=== PATIENT | male | born 1975 | race Caucasian/White ===

== ENCOUNTER → 2021-02-13 10:26 | Outpatient (CLI) | payer BC, SELFPAY ==
[2021-02-13 11:28] LABS: Alanine Aminotransferase 18 U/L (12-78); Albumin Level 4.7 g/dl (3.5-5.0); Albumin/Globulin Ratio 1.7 (1.1-1.8); Alkaline Phosphatase 46 U/L (38-126); Anion Gap 13.7 mEq/L (5-15); Aspartate Amino Transferase 30 U/L (17-59); Blood Urea Nitrogen 14 mg/dl (9-20); Calcium 9.5 mg/dl (8.4-10.2); Carbon Dioxide 32 mmol/L (22.0-30.0); Chloride 101 mmol/L (98-107); Estimated Glomerular Filt Rate 92 ml/min (>60); GFR (African American) 111 ML/MIN (>60); Globulin 2.7 g/dL (1.3-3.2); Glucose 100 mg/dl (74-100); Potassium 4.7 mmoL/L (3.5-5.1); Sodium 142 mmol/L (136-145); Total Protein,Serum 7.4 g/dl (6.3-8.2)
[2021-02-13 11:59] LABS: Prostate Specific Ag Screen 1.6 ng/ml (0.0-4.0)
== END ==
PROVIDERS: Visit Provider Nurse Practitioner Family
DX: R39.11 Hesitancy of micturition (principal); Z12.5 Encounter for screening for malignant neoplasm of prostate
CPT/HCPCS: 36415; 80053; G0103

== ENCOUNTER 2021-06-15 12:23 | Emergency (ER) | payer BC, SELFPAY ==
[2021-06-15 13:37] VITALS: BP 113/77; PULSE 65; RESP 18; TEMP 36.9; O2SAT 99; BMI 19.7
--- NOTE | 2021-06-15 13:41 | HMH.EDUTC ---
[facility] [place] Disposition Clinical Impression: Viral syndrome Disposition: Home, Self-Care Condition on Discharge: Good Instructions: DI for Viral Syndrome Additional Instructions: Drink plenty of fluids. Rest for a couple of days. Take tylenol or ibuprofen for pain or fever. Follow up with your regular doctor. GO TO THE ER FOR ANY WORSENING SYMPTOMS Referrals: Liban Sellers MD [Primary Care Provider] - Forms: Work/School Release Time of Disposition: 13:51 Medical Decision Making - Medical Records Medical records reviewed: No: I reviewed the patient's medical records. - Сергей Inquiry Pt receiving controlled substance: No Vital Signs: 06/15/21 13:37 06/15/21 14:08 Temperature 98.4 F 98.4 F Temperature Source Temporal Artery Scan Pulse Rate 65 Pulse Rate [Right Brachial] 65 Respiratory Rate 18 18 Blood Pressure 113/77 Blood Pressure [Right Arm] 113/77 Blood Pressure Mean [Right Arm] 89 Blood Pressure Source [Right Arm] Automatic Cuff Blood Pressure Position [Right Arm] Sitting 02 Sat by Pulse Oximetry 99 Oxygen Delivery Method Room Air - Lab Data Lab results reviewed: Yes: I reviewed the patient's lab results. Lab Results 06/15/21 13:45: Strep Scn Rapid Clinic Negative 06/15/21 13:51: Chlamy pneumoniae PCR Not detected, Adenovirus (PCR) Not detected, B. pertussis DNA (PCR) Not detected, Coronavirus OC43 (PCR) Not detected, Coronavirus HKU1 (PCR) Not detected, Coronavirus 229E (PCR) Not detected, SARS-CoV-2 (PCR) Not detected, Coronavirus NL63 (PCR) Not detected, Human Metapneumovir PCR Not detected, Influenza A (H1) PCR Not detected, Influ A (H1N1/09) PCR Not detected, Influenza A (H3) PCR Not detected, Influenza Type A (PCR) Not detected, Influenza Type B (PCR) Not detected, M. pneumoniae (PCR) Not detected, Parainfluenza 1 (PCR) Not detected, Parainfluenza 2 (PCR) Not detected, Parainfluenza 3 (PCR) Not detected, Parainfluenza 4 (PCR) Not detected, RSV (PCR) Not detected, Entero/Rhino (PCR) Not detected [facility] [place] HPI - General Stated complaint: sore throat, cough, runny nose Time Seen by Provider: 06/15/21 13:41 - History of Present Illness Provider Complaint: He c/o sinus congestion and feeling bad since yesterday. - Related Data Home Medications Medication Instructions Recorded Confirmed buspirone 5 mg tablet 5 mg PO BID 03/01/21 06/15/21 paroxetine HCl 20 mg tablet 20 mg PO DAILY 03/01/21 06/15/21 Oxybutynin Chloride 5 mg PO BID 06/15/21 06/15/21 Allergies Allergy/AdvReac Type Severity Reaction Status Date / Time penicillin G [PENICILLIN G] Allergy Intermediate I-RASH Verified 06/15/21 13:36 [facility] History - Hepatitis A Screen Attestation statement:: This patient has been screened for Hepatitis A risk factors. I have reviewed the patient's past medical history: Yes Comment: pneumonia, cat scratch fever Other Surgeries: Yes: No Previous Surgery Amputation: No Fractures: No Comment: swollen glands removed from under arm, chest tubes in lungs for double pneumonia, - Social History Smoking Status: Former smoker Tobacco Type: cigarettes Alcohol Intake: current Alcohol Intake Frequency:: a few times a month Occupational Status: other, employed Housing: house Household Members: family Family Hx:: Cancer, Hyperlipidemia, Diabetes, Hypertension, Heart Attack, Thyroid Disorder ROS Obtained: Yes All systems reviewed & no additional complaints - Constitutional Constitutional: Reports fever(s), Reports poor appetite, Reports malaise - Eyes Eyes: Denies eye discharge - ENT Ears, Nose, Mouth, and Throat: Reports as per HPI, Denies dizziness, Denies otalgia, Reports sore throat - Cardiovascular Cardiovascular: Denies chest pain - Respiratory Respiratory: Denies chest congestion, Reports cough, Denies dyspnea, Denies stridor, Denies wheezing Physical Exam - General General appearance: alert, in no apparent distress - Head Head exam: atrau
[2021-06-15 14:01] LABS: Adenovirus,PCR Not Detected (NotDetected); Coronavirus 229E Not Detected (NotDetected); Coronavirus NL63 Not Detected (NotDetected); Coronavirus OC43 Not Detected (NotDetected); Coronovirus HKU1,PCR Not Detected (NotDetected); Human Metapneumovirus Not Detected (NotDetected); Influenza A, PCR Not Detected (NotDetected); Rhinovirus/Enterovirus Not Detected (NotDetected)
[2021-06-15 14:02] LABS: Bordetella Pertussis Not Detected (NotDetected); Chlamydophila Pneumoniae, PCR Not Detected (NotDetected); Coronavirus 19, PCR Not Detected (NotDetected); Influenza AH1, 2009 Not Detected (NotDetected); Influenza AH1, PCR Not Detected (NotDetected); Influenza AH3,PCR Not Detected (NotDetected); Influenza B, PCR Not Detected (NotDetected); Mycoplasma Pneumoniae, PCR Not Detected (NotDetected); Parainfluenza 1, PCR Not Detected (NotDetected); Parainfluenza 2, PCR Not Detected (NotDetected); Parainfluenza 3, PCR Not Detected (NotDetected); Parainfluenza 4, PCR Not Detected (NotDetected); Respiratory Syncytial Virus Not Detected (NotDetected)
[2021-06-15 14:04] LABS: UTC Strep Screen (Rapid) Negative (Negative)
[2021-06-15 14:08] VITALS: BP 113/77; PULSE 65; RESP 18; TEMP 36.9
== END 2021-06-15 14:08 | disposition home or self-care (01) ==
PROVIDERS: Emergency Provider Nurse Practitioner Family; PCP Family Medicine
DX: B34.9 Viral infection, unspecified (principal); Z20.822 Contact with and (suspected) exposure to COVID-19; Z87.891 Personal history of nicotine dependence
CPT/HCPCS: 87581; 87632; 87798; 87880; 99202; C9803; G0463; U0003; U0005

== ENCOUNTER 2022-04-08 14:30 | Emergency (ER) | payer BC, SELFPAY ==
--- NOTE | 2022-04-08 16:30 | EXP.UTC ---
Discharge Plan Disposition Patient Disposition: Home, Self-Care Condition: Good Prescriptions Prescriptions: New azithromycin [Zithromax] 250 mg tablet 250 mg PO UD DOSE PK Qty: 6 0RF Rx Instructions: Take two (2) tablets today, then one (1) tablet days #2 thru #5 methylprednisolone 4 mg Tablets,Dose Pack 4 mg PO DIRECTED Qty: 21 0RF No Action paroxetine HCl 20 mg tablet 20 mg PO DAILY buspirone 5 mg tablet 5 mg PO BID oxybutynin chloride 5 mg tablet 5 mg PO BID Qty: 60 5RF oxybutynin chloride 5 MG tablet 5 mg PO BID Referrals Referrals: Radhika Pickard APRN [Primary Care Provider] - Enter time for follow up Activity Restrictions/Add. Instructions Additional Instructions/Restrictions: Drink plenty of fluids. Take tylenol or ibuprofen for pain or fever. Take the medications as directed. Follow up with your regular doctor. GO TO THE ER FOR ANY WORSENING SYMPTOMS Throw your tooth brush away and get a new one. Clinical Impressions Clinical Impression: Strep throat Instructions Patient Instructions: Strep Throat, DI for Strep Throat Discharge ED Provider: Sourav Jeter [facility] General Stated complaint: Sore throat, fatigue, SOA Mode of Arrival: Ambulatory Source of Information: Patient and Parent(s) Limitations: No Limitations Time Seen by Provider: 04/08/22 16:55 Description of Symptoms (Recalled from Triage Doc. by RN): patient comes in with complaints of sore throat and runny nose. at home covid test was negative. symptoms began monday. HEENT Symptoms (Recalled from RN notes): Yes Resp Symptoms (Recalled from RN notes): Yes Skin Symptoms (Recalled from RN notes): No MS Symptoms (Recalled from RN notes): No Functional Status (Recalled from RN notes): n/a History of Present Illness Provider Complaint: He c/o sore throat for the past 2 days. Related Data Home Medications Medication Instructions Recorded Confirmed buspirone 5 mg tablet 5 mg PO BID mood 03/01/21 06/15/21 paroxetine HCl 20 mg tablet 20 mg PO DAILY Depression 03/01/21 06/15/21 oxybutynin chloride 5 mg tablet 5 mg PO BID bladder 06/15/21 06/15/21 Previous Rx's Medication Instructions Recorded oxybutynin chloride 5 mg tablet 5 mg PO BID #60 tabs 01/13/22 azithromycin 250 mg tablet 250 mg PO UD DOSE PK #6 tabs 04/08/22 (Zithromax) methylprednisolone 4 mg tablets in 4 mg PO DIRECTED #21 tabs 04/08/22 a dose pack Allergies Allergy/AdvReac Type Severity Reaction Status Date / Time penicillin G [PENICILLIN G] Allergy Intermediate I-RASH Verified 04/08/22 16:53 Worker's Comp Is this a Worker's Comp case?: No PFSH PFSH Social History Smoking Status: Former smoker alcohol intake: current current occupational status: employed household members: family housing: house caffeine: Yes ROS Obtained: Yes All systems reviewed & no additional complaints except as documented Constitutional Constitutional: Reports chills and Reports fever(s) Eyes Eyes: Denies eye discharge ENT Ears, Nose, Mouth, and Throat: Reports as per HPI Cardiovascular Cardiovascular: Denies chest pain Respiratory Respiratory: Denies chest congestion and Reports cough Gastrointestinal Gastrointestingal: Reports nausea; Denies abdominal pain, constipation, cramping, diarrhea or vomiting Musculoskeletal Musculoskeletal: Denies arthralgias Integumentary/Breasts Skin/Breast: Denies rash Neurologic Neurologic: Denies paresthesias Physical Exam General General appearance: alert and in no apparent distress Head Head exam: atraumatic and normocephalic Eye Eye exam: Present normal appearance, PERRL and EOMI ENT ENT exam: Present normal exam, normal oropharynx, mucous membranes moist and TM's normal bilaterally Neck Neck exam: Present normal inspection, full ROM and trachea midline; Absent tenderness, meningismus or lymphadenop
[2022-04-08 16:49] VITALS: BP 113/71; PULSE 60; RESP 16; TEMP 36.6; O2SAT 99; BMI 21.1
[2022-04-08 16:54] LABS: UTC Strep Screen (Rapid) Positive (Negative)
[2022-04-08 17:29] VITALS: BP 113/71; PULSE 60; RESP 16; TEMP 36.6
== END 2022-04-08 17:46 | disposition home or self-care (01) ==
PROVIDERS: Emergency Provider Nurse Practitioner Family; PCP Nurse Practitioner Family
DX: J02.0 Streptococcal pharyngitis (principal); B95.0 Streptococcus, group A, as the cause of diseases classified elsewhere; R06.02 Shortness of breath; R53.82 Chronic fatigue, unspecified; Z20.822 Contact with and (suspected) exposure to COVID-19; Z79.52 Long term (current) use of systemic steroids; Z88.0 Allergy status to penicillin
CPT/HCPCS: 87880; 99213; C9803; G0463; U0003; U0005

== ENCOUNTER 2022-04-20 16:53 | Emergency (ER) | payer BC, SELFPAY ==
--- NOTE | 2022-04-20 18:24 | XR_ITS ---
PROCEDURE INFORMATION: Exam: XR Left Tibia and Fibula Exam date and time: 04/20/2022 6:29 PM Age: 46 years old Clinical indication: Pain; Prior surgery; Surgery date: 6+ months; Surgery type: Left lower leg surgery, hardware placed. ; Additional info: [place] pain TECHNIQUE: Imaging protocol: Radiologic exam of the Left tibia and fibula. Views: 2 views. COMPARISON: No relevant prior studies available. FINDINGS: Bones/joints: Tibial intramedullary fixation cherri with proximal and distal bicortical fixation screws demonstrating no gross hardware complication. Distal left fibular lateral fixation plate with syndesmotic screw demonstrating no gross hardware complication. Chronic largely healed fracture of the distal tibial diaphysis with areas of bridging ossification union. Persistent fracture lines are seen in the comminuted distal fibular fracture, possibly incomplete ossific union at this point, with anatomic alignment. Focal cortical thickening at the posterior margin of the proximal fibular metadiaphysis may represent a site of remote prior healed fracture. Proximal and distal tibiofibular alignment is normal. Knee and ankle joint alignment is normal. No gross joint effusions. Visualized hindfoot is unremarkable. Soft tissues: No soft tissue abnormalities. IMPRESSION: No acute findings.
--- NOTE | 2022-04-20 18:26 | HMH.EDGENADL ---
Discharge Plan Disposition Patient Disposition: Home, Self-Care Condition: Good Prescriptions Prescriptions: No Action paroxetine HCl 20 mg tablet 20 mg PO DAILY buspirone 5 mg tablet 5 mg PO BID oxybutynin chloride 5 mg tablet 5 mg PO BID Qty: 60 5RF oxybutynin chloride 5 MG tablet 5 mg PO BID azithromycin [Zithromax] 250 mg tablet 250 mg PO UD DOSE PK Qty: 6 0RF Rx Instructions: Take two (2) tablets today, then one (1) tablet days #2 thru #5 methylprednisolone 4 mg Tablets,Dose Pack 4 mg PO DIRECTED Qty: 21 0RF Referrals Follow up/Referrals: Radihka Pickard APRN [Primary Care Provider] - See instructions Activity Restrictions/Add. Instructions Additional Instructions/Restrictions: You have been evaluated for left lower leg pain, likely due to routine postoperative healing. Since he presented to the emergency department after hours, you will need to return tomorrow for ultrasound to rule out DVT. Please call scheduling in the morning. Continue to take Tylenol or Motrin for aches and pains. Follow-up with your primary care doctor and primary orthopedic surgeon. Return to the emergency department for any new or worsening symptoms, pain, redness, skin changes or other concerns. Clinical Impressions Clinical Impression: Post-op pain, Left leg pain Instructions Patient Instructions: DI for Leg Pain Discharge ED Provider: Brigette Layne Adult HPI General Chief complaint: Upper Respiratory Infection Stated complaint: Eye pressure, sore throat, L LEG PAIN Time Seen by Provider: 04/20/22 18:27 Mode of Arrival: Ambulatory Source of Information: Patient Limitations: No Limitations History of Present Illness HPI narrative: 46-year-old male presenting to the emergency department with sore throat, itchy eyes, left leg pain. Symptoms started about 2 weeks ago. He and his children were diagnosed with strep pharyngitis, completed antibiotics. Feels like his sore throat never entirely got better. Feels scratchy. Hurts to swallow. No fevers, chills, shortness of breath. He also has left leg pain. The pain is on the moody and radiates toward the ankle. He has history of ORIF for a tib-fib fracture. This pain has been present for about 1 month. Feels hot, burning. No skin changes, redness or wounds. No history of DVT or PE. When he called his surgeon's office, they recommended he be evaluated for possible DVT. Related Data Home Medications Medication Instructions Recorded Confirmed buspirone 5 mg tablet 5 mg PO BID mood 03/01/21 06/15/21 paroxetine HCl 20 mg tablet 20 mg PO DAILY Depression 03/01/21 06/15/21 oxybutynin chloride 5 mg tablet 5 mg PO BID bladder 06/15/21 06/15/21 Previous Rx's Medication Instructions Recorded oxybutynin chloride 5 mg tablet 5 mg PO BID #60 tabs 01/13/22 azithromycin 250 mg tablet 250 mg PO UD DOSE PK #6 tabs 04/08/22 (Zithromax) methylprednisolone 4 mg tablets in 4 mg PO DIRECTED #21 tabs 04/08/22 a dose pack Allergies Allergy/AdvReac Type Severity Reaction Status Date / Time penicillin G [PENICILLIN G] Allergy Intermediate I-RASH Verified 04/08/22 16:53 PFSH PFS Social History (Updated 04/08/22 @ 21:53 by Sourav Jeter APRN) Smoking Status: Current every day smoker tobacco type: cigarettes alcohol intake: current current occupational status: employed Travel in the last 8 weeks: None household members: family housing: house caffeine: Yes ROS Obtained: Yes All systems reviewed & no additional complaints except as documented Constitutional Constitutional: Denies anorexia, Denies fever(s) and Denies headache(s) Eyes Eyes: Reports dry eyes, Reports irritation, Reports itchy eyes, Denies eye pain and Denies photophobia ENT Ears, Nose, Mouth, and Throat: Reports facial pain, Denies headache(s), Reports post nasal drip, Reports sinus pain, Reports sore throat and Denies throat swelling Cardiovas
[2022-04-20 18:29] VITALS: BP 127/80; PULSE 66; RESP 18; TEMP 36.9; O2SAT 100; BMI 19.5
--- NOTE | 2022-04-20 18:36 | PC.NURSE ---
PT TO XR
[2022-04-20 18:42] LABS: Coronavirus 19, PCR Not Detected (NotDetected); Influenza A, PCR Not Detected (NotDetected); Influenza B, PCR Not Detected (NotDetected)
[2022-04-20 19:30] VITALS: BP 114/75; PULSE 66; O2SAT 98
[2022-04-20 20:00] VITALS: BP 111/77; PULSE 64; O2SAT 99
[2022-04-20 20:34] VITALS: BP 110/76; PULSE 78; RESP 18; TEMP 36.6; O2SAT 99
== END 2022-04-20 20:36 | disposition home or self-care (01) ==
PROVIDERS: Emergency Provider Emergency Medicine; PCP Nurse Practitioner Family
DX: M79.605 Pain in left leg (principal); J02.9 Acute pharyngitis, unspecified; J06.9 Acute upper respiratory infection, unspecified; H04.129 Dry eye syndrome of unspecified lacrimal gland; F17.210 Nicotine dependence, cigarettes, uncomplicated; Z98.890 Other specified postprocedural states
CPT/HCPCS: 73590; 99283; C9803; U0003; U0005

== ENCOUNTER → 2022-04-21 09:14 | Outpatient (CLI) | payer BC, SELFPAY ==
--- NOTE | 2022-04-21 09:23 | CA_ITS ---
FINAL REPORT TECHNIQUE: Color Doppler, duplex Doppler and compression sonography of the left lower extremity deep venous systems was performed. CLINICAL HISTORY: .ORIF 01/02 LEFT LOWER LEG PAIN FINDINGS: There is no evidence of deep venous thrombosis from the level of the groin to the calf. The veins are patent and compressible. IMPRESSION: No evidence of deep venous thrombosis left lower extremity. Reviewed, Interpreted and Dictated by Miguel Angel Sanchez III, MD Transcribed by Cristian Mcpherson Authenticated and [facility]
== END ==
PROVIDERS: PCP Nurse Practitioner Family; Visit Provider Emergency Medicine
DX: M79.662 Pain in left lower leg (principal)
CPT/HCPCS: 93971

== ENCOUNTER 2022-05-29 16:39 | Emergency (ER) | payer BC, SELFPAY ==
[2022-05-29 16:50] VITALS: BP 125/64; PULSE 81; RESP 18; TEMP 37.2; O2SAT 98; BMI 19.8
--- NOTE | 2022-05-29 17:10 | EXP.UTC ---
Discharge Plan Disposition Patient Disposition: Home, Self-Care Condition: Good Prescriptions Prescriptions: No Action paroxetine HCl 20 mg tablet 20 mg PO DAILY buspirone 5 mg tablet 5 mg PO BID oxybutynin chloride 5 mg tablet 5 mg PO BID Qty: 60 5RF oxybutynin chloride 5 MG tablet 5 mg PO BID azithromycin [Zithromax] 250 mg tablet 250 mg PO UD DOSE PK Qty: 6 0RF Rx Instructions: Take two (2) tablets today, then one (1) tablet days #2 thru #5 methylprednisolone 4 mg Tablets,Dose Pack 4 mg PO DIRECTED Qty: 21 0RF Referrals Follow up/Referrals: Radhika Pickard APRN [Primary Care Provider] - See instructions Activity Restrictions/Add. Instructions Additional Instructions/Restrictions: *Monitor Temp, Over the counter Motrin or Tylenol as directed/as needed Tylenol every 4 hours and Motrin every 6 hours (as long as your family doctor has told you that you can take it) for fever or pain. and straight to ER if unable to lower temp less than 101.0 after medication given *Warm salt water gargles may help to soothe the throat *Throat Lozenges? *Warm fluids like tea with honey may help to soothe the throat? *Sleep elevated? *Humidifier/Vaporizer Your throat swab was sent for culture. Those results are typically sent to your primary care. Be sure to follow up in 2-3 days with your family doctor/primary care physician if no improvement so they can review those result and treat if necessary. If you don?t have a primary care doctor, I recommend you get one but in the mean time, you will have to return to a walk in clinic Follow up IMMEDIATELY for new or worsening symptoms or no Noticeable improvement over the next 48-72 hours. 911 for difficulty breathing or swallowing You were tested for today for COVID19 your test result should be back in the next 24-48 hours, you may check your results on the [facility] [employer] [facility] Clinical Impressions Clinical Impression: Viral syndrome Instructions Patient Instructions: Sore Throat, DI for Nasal Congestion Discharge ED Provider: [place]i [place] [facility] [place] General Stated complaint: poss sinus inf, runny nose Mode of Arrival: Ambulatory Source of Information: Patient Limitations: No Limitations Time Seen by Provider: 05/29/22 17:10 Description of Symptoms (Recalled from Triage Doc. by RN): PATIENT C/O HEADACHE, RUNNY NOSE, AND IRRITATED THROAT SINCE THIS MORNING HEENT Symptoms (Recalled from RN notes): Yes Resp Symptoms (Recalled from RN notes): No Skin Symptoms (Recalled from RN notes): No MS Symptoms (Recalled from RN notes): No Functional Status (Recalled from RN notes): WNL History of Present Illness Provider Complaint: Patient states that he has been having headache, sinus congestion and pressure and his throat feels irritated and scratchy since this morning States that this evening he wasnt feeling any better so he came in to get checked out Related Data Home Medications Medication Instructions Recorded Confirmed buspirone 5 mg tablet 5 mg PO BID mood 03/01/21 06/15/21 paroxetine HCl 20 mg tablet 20 mg PO DAILY Depression 03/01/21 06/15/21 oxybutynin chloride 5 mg tablet 5 mg PO BID bladder 06/15/21 06/15/21 Previous Rx's Medication Instructions Recorded oxybutynin chloride 5 mg tablet 5 mg PO BID #60 tabs 01/13/22 azithromycin 250 mg tablet 250 mg PO UD DOSE PK #6 tabs 04/08/22 (Zithromax) methylprednisolone 4 mg tablets in 4 mg PO DIRECTED #21 tabs 04/08/22 a dose pack Allergies Allergy/AdvReac Type Severity Reaction Status Date / Time penicillin G [PENICILLIN G] Allergy Intermediate I-RASH Verified 04/08/22 16:53 Worker's Comp Is this a Worker's Comp case?: No PFSH PFSH Medical History (Updated 05/29/22 @ 17:37 by Meri Griffith APRN) Anxiety Depression Pneumothorax Social History (Updated 05/29/22 @ 17:03 by Paulina Ennis RN) Smoking Status: Current every
[2022-05-29 17:20] LABS: Adenovirus,PCR Not Detected (NotDetected); Bordetella Pertussis Not Detected (NotDetected); Chlamydophila Pneumoniae, PCR Not Detected (NotDetected); Coronavirus 19, PCR Not Detected (NotDetected); Coronavirus 229E Not Detected (NotDetected); Coronavirus NL63 Not Detected (NotDetected); Coronavirus OC43 Not Detected (NotDetected); Coronovirus HKU1,PCR Not Detected (NotDetected); Human Metapneumovirus Not Detected (NotDetected); Influenza A, PCR Not Detected (NotDetected); Influenza AH1, 2009 Not Detected (NotDetected); Influenza AH1, PCR Not Detected (NotDetected); Influenza AH3,PCR Not Detected (NotDetected); Influenza B, PCR Not Detected (NotDetected); Mycoplasma Pneumoniae, PCR Not Detected (NotDetected); Parainfluenza 1, PCR Not Detected (NotDetected); Parainfluenza 2, PCR Not Detected (NotDetected); Parainfluenza 3, PCR Not Detected (NotDetected); Parainfluenza 4, PCR Not Detected (NotDetected); Respiratory Syncytial Virus Not Detected (NotDetected); Rhinovirus/Enterovirus Not Detected (NotDetected)
[2022-05-29 17:29] LABS: UTC Strep Screen (Rapid) Negative (Negative)
[2022-05-29 17:31] VITALS: BP 125/64; PULSE 81; RESP 18; TEMP 37.2; O2SAT 98
== END 2022-05-29 17:51 | disposition home or self-care (01) ==
PROVIDERS: Emergency Provider Nurse Practitioner; PCP Nurse Practitioner Family
DX: J02.9 Acute pharyngitis, unspecified (principal); B34.9 Viral infection, unspecified; R51.9 Headache, unspecified; F32.A Depression, unspecified; F41.9 Anxiety disorder, unspecified; F17.210 Nicotine dependence, cigarettes, uncomplicated; Z79.52 Long term (current) use of systemic steroids; Z79.899 Other long term (current) drug therapy; Z88.0 Allergy status to penicillin
CPT/HCPCS: 87581; 87632; 87798; 87880; 99213; C9803; G0463; U0003; U0005

== ENCOUNTER 2022-06-02 12:12 | Emergency (ER) | payer BC, SELFPAY ==
--- NOTE | 2022-06-02 12:44 | XR_ITS ---
FINAL REPORT CLINICAL HISTORY: CONGESTION FINDINGS: Two views of the chest were obtained. The heart size and pulmonary vascularity are within normal limits. The mediastinum is normal. No acute pulmonary abnormality is identified. There is no pneumothorax. The bony thorax is intact. IMPRESSION: No active cardiopulmonary disease. Reviewed, Interpreted and Dictated by Miguel Angel Sanchez III, MD Transcribed by Nancy Murrieta Authenticated and [facility]
[2022-06-02 12:51] VITALS: BP 139/94; PULSE 69; RESP 16; TEMP 36.7; O2SAT 98; BMI 19.5
[2022-06-02 12:52] LABS: UTC Strep Screen (Rapid) Negative (Negative)
[2022-06-02 12:53] LABS: UTC Influenza A Antigen Negative (Negative); UTC Influenza B Antigen Negative (Negative)
--- NOTE | 2022-06-02 13:10 | EXP.UTC ---
Discharge Plan Disposition Patient Disposition: Home, Self-Care Condition: Good Prescriptions Prescriptions: New azithromycin [Zithromax Z-Tucker] 250 mg tablet See Rx Instructions .ROUTE .COMPLEX 5 Days Qty: 6 0RF Rx Instructions: For 250 mg dose pack: take 500 mg today (day 1), then 250 mg for 4 days (days 2-5) methylprednisolone [Medrol (Tucker)] 4 mg tablets,dose pack See Rx Instructions .Route .COMPLEX 6 Days Qty: 21 0RF Rx Instructions: taper pack; No Action paroxetine HCl 20 mg tablet 20 mg PO DAILY buspirone 5 mg tablet 5 mg PO BID oxybutynin chloride 5 MG tablet 5 mg PO BID azithromycin [Zithromax] 250 mg tablet 250 mg PO UD DOSE PK Qty: 6 0RF Rx Instructions: Take two (2) tablets today, then one (1) tablet days #2 thru #5 methylprednisolone 4 mg Tablets,Dose Pack 4 mg PO DIRECTED Qty: 21 0RF oxybutynin chloride 5 mg tablet 5 mg PO BID Referrals Follow up/Referrals: Radhika Pickard APRN [Primary Care Provider] - See instructions Activity Restrictions/Add. Instructions Additional Instructions/Restrictions: *Monitor Temp, Over the counter Motrin or Tylenol as directed/as needed Tylenol every 4 hours and Motrin every 6 hours (as long as your family doctor has told you that you can take it) for fever or pain. and straight to ER if unable to lower temp less than 101.0 after medication given *Warm salt water gargles may help to soothe the throat *Throat Lozenges? *Warm fluids like tea with honey may help to soothe the throat? *Sleep elevated *Humidifier/Vaporizer Your throat swab was sent for culture. Those results are typically sent to your primary care. Be sure to follow up in 2-3 days with your family doctor/primary care physician if no improvement so they can review those result and treat if necessary. If you don?t have a primary care doctor, I recommend you get one but in the mean time, you will have to return to a walk in clinic Follow up IMMEDIATELY for new or worsening symptoms or no Noticeable improvement over the next 48-72 hours. 911 for difficulty breathing or swallowing Clinical Impressions Clinical Impression: Upper respiratory infection Qualifiers: URI type: unspecified URI Qualified Code(s): J06.9 - Acute upper respiratory infection, unspecified Stand Alone Forms Stand Alone Forms: Work/School Release Instructions Patient Instructions: Sinusitis, DI for Sinusitis Discharge ED Provider: Meri Griffith [facility] [place] General Stated complaint: body aches,congestion,blood in nose drainage,left Mode of Arrival: Ambulatory Source of Information: Patient Limitations: Physical Limitations Time Seen by Provider: 06/02/22 13:10 Description of Symptoms (Recalled from Triage Doc. by RN): pt comes in with c/o body aches, congestion, runny nose with yellow drainage, left lung pain, small amount of bloody drainage from nose, soreness in left eyeball, weakness, migraine, headache. HEENT Symptoms (Recalled from RN notes): Yes Resp Symptoms (Recalled from RN notes): Yes Skin Symptoms (Recalled from RN notes): No MS Symptoms (Recalled from RN notes): No Functional Status (Recalled from RN notes): n/a History of Present Illness Provider Complaint: Patient states that he was seen about a week ago and dx with viral syndrome States that he has continued to get worse since then States that he is having sinus pain and pressure with blood tinged mucous from his nose and pain and pressure behind his eyes like he gets with sinus infection States that the drainage in the back of his throat is making his throat feel scratchy and sinus headache States that last night he had some pain in his left lung and wanted to get a chest xray to make sure that it isnt trying to move into his lung or his lung collapsed again but he had SOA then and not having that now and states that not having headache this morning Related Data Home Medications
[2022-06-02 14:04] VITALS: BP 139/94; PULSE 69; RESP 16; TEMP 36.7
== END 2022-06-02 14:05 | disposition home or self-care (01) ==
PROVIDERS: Emergency Provider Nurse Practitioner; PCP Nurse Practitioner Family
DX: J06.9 Acute upper respiratory infection, unspecified (principal)
CPT/HCPCS: 71046; 87804; 87880; 99212; G0463

== ENCOUNTER 2022-06-06 11:00 | Outpatient (RCR) | payer BC, SELFPAY | END 2022-06-06 11:05 | disposition home or self-care (01) | LOC: PT 11:00 | PROVIDERS: PCP Nurse Practitioner Family; Visit Provider Neuromusculoskeletal Medicine, Sports Medicine | DX: M79.605 Pain in left leg (principal); M25.572 Pain in left ankle and joints of left foot | CPT/HCPCS: 97010; 97110; 97112; 97163; 97164; 97530 ==

== ENCOUNTER → 2023-01-14 10:05 | Outpatient (CLI) | payer BC, SELFPAY ==
[2023-01-13 17:53] LABS: Basophils % 0.4 % (0.1-2.0); Eosinophils # 0.2 K/mm3 (0.0-0.4); Eosinophils % 2.9 % (0.1-12.0); Hematocrit 46.5 % (42.0-52.0); Hemoglobin 15.4 g/dL (14.1-18.0); Lymphocytes # 1.5 K/mm3 (0.7-4.5); Mean Corpuscular HGB Conc 33.1 g/dL (31.8-35.4); Mean Corpuscular Hemoglobin 30.8 pg (27.0-31.2); Mean Corpuscular Volume 93.1 fl (80-94); Mean Platelet Volume 10.4 fl (7.4-10.4); Monocytes # 0.5 K/mm3 (0.1-1.0); Monocytes % 9.7 % (1.7-9.3); Neutrophils # 2.9 K/mm3 (1.8-7.8); Platelet Count 207 K/mm3 (142-424); Red Blood Count 4.99 M/mm3 (4.60-6.20); Red Cell Distribution Width 12.6 % (11.5-17.5); White Blood Count 5.1 K/mm3 (4.8-10.8)
[2023-01-13 18:29] LABS: Alanine Aminotransferase 24 U/L (12-78); Albumin Level 4.6 g/dl (3.5-5.0); Albumin/Globulin Ratio 1.6 (1.1-1.8); Alkaline Phosphatase 58 U/L (38-126); Anion Gap 13.3 mEq/L (5-15); Aspartate Amino Transferase 33 U/L (17-59); Bilirubin,Total 0.7 mg/dl (0.2-1.3); Blood Urea Nitrogen 15 mg/dl (9-20); Calcium 9.6 mg/dl (8.4-10.2); Carbon Dioxide 31 mmol/L (22.0-30.0); Chloride 101 mmol/L (98-107); Cholesterol 205 mg/dl (140-200); Estimated Glomerular Filt Rate 91 ml/min (>60); GFR (African American) 110 ML/MIN (>60); Globulin 2.8 g/dL (1.3-3.2); Glucose 98 mg/dl (74-100); HDL Cholesterol 68 mg/dl (40-60); Potassium 4.3 mmoL/L (3.5-5.1); Sodium 141 mmol/L (136-145); Total Protein,Serum 7.4 g/dl (6.3-8.2); Triglycerides 48 mg/dl (30-150); VLDL Cholesterol 10 mg/dL (0-40)
[2023-01-13 18:41] LABS: Direct LDL Cholesterol 114.29 mg/dL (100-129)
[2023-01-13 18:48] LABS: 25-OH Vitamin D, Total 21.9 ng/mL (30-100)
[2023-01-13 19:01] LABS: Thyroid Stimulating Hormone 0.54 uIU/mL (0.465-4.68)
== END ==
LOC: LAB.DROPOF 10:06
PROVIDERS: PCP Nurse Practitioner Family; Visit Provider Nurse Practitioner Family
DX: R53.83 Other fatigue (principal); E55.9 Vitamin D deficiency, unspecified; Z79.899 Other long term (current) drug therapy
CPT/HCPCS: 80053; 80061; 82306; 84443; 85025

== ENCOUNTER → 2023-05-22 15:20 | Outpatient (CLI) | payer BC, SELFPAY ==
[2023-05-22 19:53] LABS: Basophils % 0.3 % (0.1-2.0); Eosinophils # 0.1 K/mm3 (0.0-0.4); Eosinophils % 1.4 % (0.1-12.0); Hematocrit 45.5 % (42.0-52.0); Lymphocytes # 1.4 K/mm3 (0.7-4.5); Lymphocytes % 25.5 % (10-50); Mean Corpuscular Hemoglobin 30.6 pg (27.0-31.2); Mean Corpuscular Volume 92.8 fl (80-94); Mean Platelet Volume 10.8 fl (7.4-10.4); Monocytes # 0.4 K/mm3 (0.1-1.0); Monocytes % 8.2 % (1.7-9.3); Neutrophils # 3.5 K/mm3 (1.8-7.8); Neutrophils % 64.7 % (37.0-80.0); Platelet Count 223 K/mm3 (142-424); Red Cell Distribution Width 12.6 % (11.5-17.5); White Blood Count 5.3 K/mm3 (4.8-10.8)
[2023-05-22 20:20] LABS: 25-OH Vitamin D, Total 77.5 ng/mL (30-100)
[2023-05-22 20:23] LABS: Alanine Aminotransferase 18 U/L (12-78); Albumin Level 4.7 g/dl (3.5-5.0); Albumin/Globulin Ratio 1.6 (1.1-1.8); Alkaline Phosphatase 47 U/L (38-126); Aspartate Amino Transferase 27 U/L (17-59); Bilirubin,Total 0.8 mg/dl (0.2-1.3); Blood Urea Nitrogen 13 mg/dl (9-20); Calcium 9.7 mg/dl (8.4-10.2); Carbon Dioxide 31 mmol/L (22.0-30.0); Chloride 104 mmol/L (98-107); Estimated Glomerular Filt Rate 91 ml/min (>60); GFR (African American) 110 ML/MIN (>60); Glucose 87 mg/dl (74-100); Sodium 142 mmol/L (136-145); Total Protein,Serum 7.7 g/dl (6.3-8.2)
[2023-05-22 20:54] LABS: Thyroid Stimulating Hormone 0.76 uIU/mL (0.465-4.68)
[2023-05-22 21:13] LABS: Vitamin B12 727 pg/mL (239-931)
== END ==
LOC: LAB.DROPOF 05-23 09:49
PROVIDERS: PCP Internal Medicine; Visit Provider Internal Medicine
DX: I73.00 Raynaud's syndrome without gangrene (principal); Z79.899 Other long term (current) drug therapy
CPT/HCPCS: 80053; 82306; 82607; 84443; 85025

== ENCOUNTER 2023-05-31 18:37 | Emergency (ER) | payer BC, SELFPAY ==
[2023-05-31 18:38] VITALS: BP 112/83; PULSE 78; RESP 21; TEMP 37.6; O2SAT 100; BMI 20.8
[2023-05-31 19:12] LABS: UTC Strep Screen (Rapid) Negative (Negative)
--- NOTE | 2023-05-31 19:29 | EXP.UTC ---
Discharge Plan Disposition Patient Disposition: Home, Self-Care Condition: Good Prescriptions Prescriptions: New benzonatate 100 mg capsule 100 mg PO TID PRN (Reason: cough) Qty: 30 0RF ondansetron 4 mg tablet,disintegrating 4 mg PO Q8H PRN (Reason: nausea and vomiting) Qty: 10 0RF No Action buspirone 5 mg tablet 5 mg PO TID Qty: 270 1RF Referrals Follow up/Referrals: Nicole Kelley PA [Primary Care Provider] - See instructions Activity Restrictions/Add. Instructions Additional Instructions/Restrictions: *Monitor Temp, Over the counter Motrin or Tylenol as directed/as needed Tylenol every 4 hours and Motrin every 6 hours (as long as your family doctor has told you that you can take it) for fever or pain. and straight to ER if unable to lower temp less than 101.0 after medication given *Warm salt water gargles may help to soothe the throat *Throat Lozenges? *Warm fluids like tea with honey may help to soothe the throat? *Sleep elevated *Humidifier/Vaporizer Your throat swab was sent for culture. Those results are typically sent to your primary care. Be sure to follow up in 2-3 days with your family doctor/primary care physician if no improvement so they can review those result and treat if necessary. If you don?t have a primary care doctor, I recommend you get one but in the mean time, you will have to return to a walk in clinic Follow up IMMEDIATELY for new or worsening symptoms or no Noticeable improvement over the next 48-72 hours. 911 for difficulty breathing or swallowing Clinical Impressions Clinical Impression: Viral upper respiratory tract infection with cough Stand Alone Forms Stand Alone Forms: Work/School Release Instructions Patient Instructions: Cough, DI for Nausea -- Adult Discharge ED Provider: Meri Griffith [facility] General Stated complaint: upset stomach, weakness, congestion, sore throat Mode of Arrival: Ambulatory Source of Information: Patient Limitations: No Limitations Time Seen by Provider: 05/31/23 19:29 Description of Symptoms (Recalled from Triage Doc. by RN): stomach cramps, sore throat, and fever HEENT Symptoms (Recalled from RN notes): Yes Resp Symptoms (Recalled from RN notes): No Skin Symptoms (Recalled from RN notes): No MS Symptoms (Recalled from RN notes): No Functional Status (Recalled from RN notes): n/a History of Present Illness Provider Complaint: Patient states that he has been having sore throat, fever, and upset stomach States that daughter is having similar symptoms not sure if they may have strep throat or a virus or something Related Data Previous Rx's Medication Instructions Recorded buspirone 5 mg tablet 5 mg PO TID #270 tabs 06/09/22 benzonatate 100 mg capsule 100 mg PO TID PRN cough #30 caps 05/31/23 ondansetron 4 mg disintegrating 4 mg PO Q8H PRN nausea and 05/31/23 tablet vomiting #10 tabs Allergies Allergy/AdvReac Type Severity Reaction Status Date / Time penicillin G [PENICILLIN G] Allergy Intermediate I-RASH Verified 05/31/23 19:15 Worker's Comp Is this a Worker's Comp case?: No [facility] Disclaimer: The information contained in this section may have been updated after the patient was seen, as this information can be updated by other users. Medical History Anxiety Depression Fracture of left tibia and fibula Pneumothorax Surgical History Fracture of left tibia and fibula Social History Smoking Status: Never smoker alcohol intake: current current occupational status: employed Travel in the last 8 weeks: None household members: family housing: house caffeine: Yes ROS Obtained: Yes All systems reviewed & no additional complaints except as documented and Yes Systems reviewed as appropria
[2023-05-31 19:44] VITALS: BP 112/83; PULSE 78; RESP 21; TEMP 37.6; O2SAT 100
== END 2023-05-31 19:44 | disposition home or self-care (01) ==
PROVIDERS: Emergency Provider Nurse Practitioner; PCP Physician Assistant
DX: R05.9 Cough, unspecified (principal); J06.9 Acute upper respiratory infection, unspecified; R11.0 Nausea; B34.9 Viral infection, unspecified; F41.9 Anxiety disorder, unspecified; F32.A Depression, unspecified
CPT/HCPCS: 87880; 99212; 99214; G0463

== ENCOUNTER 2023-06-07 15:34 | Emergency (ER) | payer BC, SELFPAY ==
[2023-06-07 15:40] VITALS: BP 127/78; PULSE 78; RESP 18; TEMP 36.6; O2SAT 98; BMI 19.5
--- NOTE | 2023-06-07 15:50 | EXP.UTC ---
Discharge Plan Disposition Patient Disposition: Home, Self-Care Condition: Good Prescriptions Prescriptions: New methylprednisolone 4 mg Tablets,Dose Pack 4 mg PO DIRECTED Qty: 21 0RF cefdinir 300 mg capsule 300 mg PO BID Qty: 20 0RF guaifenesin [Mucinex] 600 mg tablet extended release 12hr 600 - 1,200 mg PO BIDP PRN (Reason: Congestion) Qty: 30 0RF isgqjihcvuhsanu-ppmtfvlvm-EX [Bromfed DM] 2-30-10 mg/5 mL Syrup 5 ml PO Q6H PRN (Reason: Cough) Qty: 240 0RF No Action buspirone 5 mg tablet 5 mg PO TID Qty: 270 1RF benzonatate 100 mg capsule 100 mg PO TID PRN (Reason: cough) Qty: 30 0RF ondansetron 4 mg tablet,disintegrating 4 mg PO Q8H PRN (Reason: nausea and vomiting) Qty: 10 0RF Referrals Follow up/Referrals: Nicole Kelley PA [Primary Care Provider] - See instructions Activity Restrictions/Add. Instructions Additional Instructions/Restrictions: Drink plenty of fluids. Take tylenol or ibuprofen for pain or fever. Take the medications as directed. Follow up with your regular doctor. GO TO THE ER FOR ANY WORSENING SYMPTOMS Clinical Impressions Clinical Impression: Pharyngitis, Sinusitis, Bronchitis Stand Alone Forms Stand Alone Forms: Work/School Release Instructions Patient Instructions: Sinusitis, DI for Sinusitis Discharge ED Provider: Sourav Jeter [facility] General Stated complaint: congestion, weakness, sore throat Time Seen by Provider: 06/07/23 15:50 History of Present Illness Provider Complaint: He states that for the past 2 days he has had sore throat, chills, body aches and low grade fever. Related Data Previous Rx's Medication Instructions Recorded buspirone 5 mg tablet 5 mg PO TID #270 tabs 06/09/22 benzonatate 100 mg capsule 100 mg PO TID PRN cough #30 caps 05/31/23 ondansetron 4 mg disintegrating 4 mg PO Q8H PRN nausea and 05/31/23 tablet vomiting #10 tabs clufjqkhzmvdgft-dwyenuncupbcnzu-MR 5 ml PO Q6H PRN Cough #240 mL 06/07/23 2 mg-30 mg-10 mg/5 mL oral syrup (Bromfed DM) cefdinir 300 mg capsule 300 mg PO BID #20 caps 06/07/23 guaifenesin 600 mg tablet, 600 - 1,200 mg PO BIDP PRN 06/07/23 extended release 12 hr (Mucinex) Congestion #30 tabs methylprednisolone 4 mg tablets in 4 mg PO DIRECTED #21 tabs 06/07/23 a dose pack Allergies Allergy/AdvReac Type Severity Reaction Status Date / Time penicillin G [PENICILLIN G] Allergy Intermediate I-RASH Verified 05/31/23 19:15 [facility] Disclaimer: The information contained in this section may have been updated after the patient was seen, as this information can be updated by other users. Medical History Anxiety Depression Fracture of left tibia and fibula Pneumothorax Surgical History Fracture of left tibia and fibula Social History Smoking Status: Never smoker alcohol intake: current current occupational status: employed Travel in the last 8 weeks: None household members: family housing: house caffeine: Yes ROS Obtained: Yes All systems reviewed & no additional complaints except as documented Constitutional Constitutional: Reports chills and Reports fever(s) Eyes Eyes: Denies eye discharge ENT Ears, Nose, Mouth, and Throat: Reports as per HPI Cardiovascular Cardiovascular: Denies chest pain Respiratory Respiratory: Denies chest congestion and Reports cough Gastrointestinal Gastrointestingal: Reports nausea; Denies abdominal pain, constipation, cramping, diarrhea or vomiting Musculoskeletal Musculoskeletal: Denies arthralgias Integumentary/Breasts Skin/Breast: Denies rash Neurologic Neurologic: Denies paresthesias Physical Exam General General appearance: alert and in no apparent distress Head Head exam: atraumatic, normocephalic and normal inspection Eye Ey
[2023-06-07 16:02] LABS: UTC Strep Screen (Rapid) Negative (Negative)
[2023-06-07 16:38] VITALS: BP 127/78; PULSE 78; RESP 18; TEMP 36.6; O2SAT 98
== END 2023-06-07 16:38 | disposition home or self-care (01) ==
PROVIDERS: Emergency Provider Nurse Practitioner Family; PCP Physician Assistant
DX: J20.9 Acute bronchitis, unspecified (principal); J01.90 Acute sinusitis, unspecified; J02.9 Acute pharyngitis, unspecified
CPT/HCPCS: 87880; 99212; 99214; G0463

== ENCOUNTER 2024-01-04 14:46 | Outpatient (CLI) | payer BC, SELFPAY ==
--- NOTE | 2024-01-04 14:53 | XR_ITS ---
FINAL REPORT CLINICAL HISTORY: lt knee pain FINDINGS: LEFT KNEE 3 views of the left knee were obtained. There is no acute fracture or dislocation. An intramedullary cherri is seen. Visualized joint spaces are normally aligned. The soft tissue swelling anterior to the patella. IMPRESSION: No acute bony abnormality. Reviewed, Interpreted and Dictated by Matt Florentino MD Transcribed by Nita Kam Authenticated and [facility]
== END 2024-01-04 23:59 | disposition home or self-care (01) ==
LOC: RAD 14:48
PROVIDERS: PCP Physician Assistant; Visit Provider Orthopaedic Surgery
DX: M25.562 Pain in left knee (principal)
CPT/HCPCS: 73562

== ENCOUNTER 2024-02-26 10:30 | Outpatient (CLI) | payer BC, SELFPAY ==
[2024-02-26 18:08] LABS: Coronavirus 19, PCR Not Detected (NotDetected); Influenza A, PCR Not Detected (NotDetected); Influenza B, PCR Not Detected (NotDetected)
== END 2024-02-26 23:59 | disposition home or self-care (01) ==
LOC: LAB.DROPOF 02-27 08:36
PROVIDERS: Visit Provider Family Medicine
DX: R51.9 Headache, unspecified (principal); H92.09 Otalgia, unspecified ear
CPT/HCPCS: 87070; 87077; 87186; 87205; 87636

== ENCOUNTER 2024-04-26 13:31 | Emergency (ER) | payer BC, SELFPAY ==
[2024-04-26 14:04] VITALS: BP 128/87; PULSE 56; RESP 20; TEMP 36.9; O2SAT 97; BMI 19.5
--- NOTE | 2024-04-26 14:13 | ED_ITS ---
Discharge Plan Disposition Patient Disposition: Home, Self-Care Condition: Good Prescriptions Prescriptions: No Action buspirone 5 mg tablet See Rx Instructions .ROUTE .COMPLEX Qty: 270 4RF Dose Instruction: TAKE 1 TABLET BY MOUTH THREE TIMES DAILY Rx Instructions: TAKE 1 TABLET BY MOUTH THREE TIMES DAILY Referrals Follow up/Referrals: Nicole Kelley PA [Primary Care Provider] - See instructions Activity Restrictions/Add. Instructions Additional Instructions/Restrictions: Follow up with your Family Doctor if no improvement and discuss MRI if symptoms persist Over the counter Cold and Cough medication Return if needed Straight to ER if any life threatening symptoms Clinical Impressions Clinical Impression: URI (upper respiratory infection) Instructions Patient Instructions: DI for Nasal Congestion, Guaifenesin Print Language Print Language: Malaysian Discharge ED Provider: Meri Griffith [facility] HPI General Stated complaint: upper respiratory congesstion, sore throat Mode of Arrival: Ambulatory Source of Information: Patient Time Seen by Provider: 04/26/24 14:13 Description of Symptoms (Recalled from Triage Doc. by RN): UPPER CHEST SORENESS, FATIGUE, LEFT KNEE NUMB HEENT Symptoms (Recalled from RN notes): No Resp Symptoms (Recalled from RN notes): Yes (UPPER CHEST SORENESS) Skin Symptoms (Recalled from RN notes): No MS Symptoms (Recalled from RN notes): Yes (NUMBNESS) Functional Status (Recalled from RN notes): WNL History of Present Illness Provider Complaint: Patient states that he thinks he may have URI states he has been having drainage in his throat and into his chest, no coughing anything up States he has been having pain and numbness in his legs for almost a year and seeing Orthopedics for it and already had Xrays wasnt sure if he could do an MRI or not requesting COVID test Related Data Previous Rx's ?Medication ?Instructions ?Recorded buspirone 5 mg tablet See Rx Instructions .Route 02/26/24 .COMPLEX #270 tabs Allergies Allergy/AdvReac Type Severity Reaction Status Date / Time penicillin G [PENICILLIN G] Allergy Intermediate I-RASH Verified 02/26/24 10:18 Worker's Comp Is this a Worker's Comp case?: No [facility] Disclaimer: The information contained in this section may have been updated after the patient was seen, as this information can be updated by other users. Medical History (Updated 04/26/24 @ 15:39 by Meri Griffith APRN) Pharyngitis Sinusitis Bronchitis Fracture of left tibia and fibula Pneumothorax Depression Anxiety Surgical History Fracture of left tibia and fibula Social History Smoking Status: Never smoker alcohol intake: current alcohol intake frequency: a few times a month current occupational status: employed Travel in the last 8 weeks: None household members: family housing: house caffeine: Yes ROS Obtained: Yes All systems reviewed & no additional complaints except as documented and Yes Systems reviewed as appropriate & no additional complaints except as documented Constitutional Constitutional: Reports system reviewed and no additional complaints, except as documented and Reports as per HPI ENT Ears, Nose, Mouth, and Throat: Reports system reviewed and no additional complaints, except as documented, Reports as per HPI, Reports nasal congestion, Reports nasal discharge and Reports other (drainage in throat) Cardiovascular Cardiovascular: Reports system reviewed and no additional complaints, except as documented, Reports as per HPI, Denies chest pain, Denies chest pain at rest, Denies edema, Denies irregular heart rhythm, Denies leg edema and Denies lightheadedness Respiratory Respiratory: Reports system reviewed and no additional complaints, except as documented, Reports as per HPI, Reports chest congestion and Reports cough Gastrointestinal Gastrointestingal: Reports system reviewed and no additional complaints, except as documented and as per HPI Genitourinary Male Genitourinary: Reports system reviewed and no additional complaints, except as documented Musculoskeletal Musculoskeletal: Reports system reviewed and no additional complaints, except as documented Comments: pain, numbnes on and off for a year currently seeing Orthopedics awaiting appointment with Spine Physical Exam General General appearance: alert and in no apparent distress ENT ENT exam: Present mucous membranes moist Expanded ENT Exam Nose exam: Absent sinus tenderness Throat exam: Present normal inspection Neck Neck exam: Present normal inspection, full ROM and trachea midline; Absent tenderness Chest Chest inspection: Present normal inspection, symmetric chest wall rise and tenderness Respiratory Respiratory exam: Present normal lung sounds bilaterally; Absent respiratory distress or wheezes Cardiovascular Cardiovascular exam: Present regular rate Abdominal Exam Abdominal exam: Present soft and normal bowel sounds; Absent distention or tenderness Extremities Exam Extremities exam: Present normal inspection and full ROM; Absent tenderness, normal capillary refill, edema, joint swelling, calf tenderness, clubbing or cyanosis Neurological Exam Neurological exam: Present alert, oriented X3 and normal gait Medical Decision Making Сергей Inquiry Pt receiving controlled substance: No Сергей was queried for this patient: No Vital Signs: 04/26/24 14:04 Temperature 98.5 F Temperature Source Oral Pulse Rate [Left Brachial] 56 L Respiratory Rate 20 Blood Pressure [Left Arm] 128/87 Blood Pressure Mean [Left Arm] 100 02 Sat by Pulse Oximetry 97 Medical Decision Narrative: Explained to patient that MRI would have to be ordered by PCP or Orthopedics unable to order them from the [facility]
[2024-04-26 16:06] VITALS: BP 128/87; PULSE 56; RESP 20; TEMP 36.9
== END 2024-04-26 16:07 | disposition home or self-care (01) ==
PROVIDERS: Emergency Provider Nurse Practitioner; PCP Physician Assistant
DX: J06.9 Acute upper respiratory infection, unspecified (principal); R05.9 Cough, unspecified
CPT/HCPCS: 87635; 99212; 99213; G0463

== ENCOUNTER 2024-05-02 13:46 | Emergency (ER) | payer BC, SELFPAY ==
[2024-05-02 13:53] VITALS: BP 132/76; PULSE 96; RESP 16; TEMP 36.8; O2SAT 99; BMI 19.5
--- NOTE | 2024-05-02 14:18 | ED_ITS ---
<Statement entered by Bozena Whatley DO - 05/02/24 17:51> I was consulted by the BLOSSOM, and we discussed the complexity of the problems being addressed. I approved the treatment and management plan for this patient's care in the emergency department, thus performing a substantive portion of the medical decision making. Bozena Whatley DO Discharge Plan Disposition Patient Disposition: Home, Self-Care Condition: Good Prescriptions Prescriptions: New methocarbamol 750 mg tablet 750 mg PO Q6H PRN (Reason: muscle spasm) Qty: 20 0RF prednisone 50 mg tablet 50 mg PO DAILY 5 Days Qty: 5 0RF lidocaine 5 % adhesive patch,medicated 1 patch topical DAILY Qty: 30 0RF Rx Instructions: leave on most painful area for up to 12 hrs No Action buspirone 5 mg tablet See Rx Instructions .ROUTE .COMPLEX Qty: 270 4RF Dose Instruction: TAKE 1 TABLET BY MOUTH THREE TIMES DAILY Rx Instructions: TAKE 1 TABLET BY MOUTH THREE TIMES DAILY Referrals Follow up/Referrals: Nicole Kelley PA [Primary Care Provider] - See instructions Activity Restrictions/Add. Instructions Additional Instructions/Restrictions: Please schedule your follow-up with Dr. Lemus. I have sent medications to your pharmacy. Follow-up with your PCP for no improvement. Return to ER for any worsening signs or symptoms as needed. Clinical Impressions Clinical Impression: Left sciatic nerve pain Instructions Patient Instructions: DI for Sciatica Print Language Print Language: Portuguese Discharge ED Provider: Bozena Whatley General Adult HPI General Chief complaint: PAIN Stated complaint: pain in left leg Time Seen by Provider: 05/02/24 14:18 Mode of Arrival: Ambulatory Source of Information: Patient Limitations: No Limitations Description of Symptoms (Recalled from ER Triage Doc. by RN): Pt. presents to the ED with complaints of left leg pain. He states he has had pain in his left leg since August but it has progressively gotten worse over the past 9 months. He states it starts in his toes with tingling, numbness and goes up into his mid-thigh. He states over the last few weeks the pain has gotten worse and worse. He states that he had an accident in 2021 that broke his tibular/fibula and he had to have surgery. History of Present Illness HPI narrative: Patient presents for evaluation of left lower extremity pain and numbness. Patient gives a months long history of left lower extremity numbness and tingling. Patient has a previous history of ORIF of that extremity several years ago. He has been evaluated by Dr. Lemus of orthopedics here at [facility] for his knee pain and has been referred to Dr. Triston Lemus of orthospine but has yet to have seen him. He has only tried chiropractic and Tylenol for conservative measures. Patient states that initially it was only his toes that used to have numbness and tingling pain but now it is progressed to well above the knee. He states it starts when he stands up in the morning and does not go away at all or improve until he lies down at night. 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 He denies any loss of motor function. He denies bowel or bladder incontinence or saddle anesthesia. He denies any trauma associated. Patient does report a history of scoliosis. Related Data Previous Rx's ?Medication ?Instructions ?Recorded buspirone 5 mg tablet See Rx Instructions .Route 02/26/24 .COMPLEX #270 tabs lidocaine 5 % topical patch 1 patch topical DAILY #30 ea 05/02/24 methocarbamol 750 mg tablet 750 mg PO Q6H PRN muscle spasm #20 05/02/24 tabs prednisone 50 mg tablet 50 mg PO DAILY 5 days #5 tabs 05/02/24 Allergies Allergy/AdvReac Type Severity Reaction Status Date / Time penicillin G [PENICILLIN G] Allergy Intermediate I-RASH Verified 02/26/24 10:18 [facility] Disclaimer: The information contained in this section may have been updated after the patient was seen, as this information can be updated by other users. Medical History (Updated 05/02/24 @ 16:21 by OXANA Roberts) Pharyngitis Sinusitis Bronchitis Fracture of left tibia and fibula Pneumothorax Depression Anxiety Surgical History Fracture of left tibia and fibula Social History Smoking Status: Never smoker alcohol intake: current alcohol intake frequency: a few times a month current occupational status: employed Travel in the last 8 weeks: None household members: family housing: house caffeine: Yes ROS Obtained: Yes Systems reviewed as appropriate & no additional complaints except as documented Physical Exam General General appearance: alert and in no apparent distress Respiratory Respiratory exam: Present normal lung sounds bilaterally Cardiovascular Cardiovascular exam: Present regular rate Neurological Exam Neurological exam: Present alert and oriented X3 Medical Decision Making Medical Records Medical records reviewed: Yes I reviewed the patient's medical records. Screening: Per USPSTF and CDC recommendations, given the prevalence of disease in our region, it is our hospital?s policy to screen for HIV and viral Hepatitis for all patients aged 18 and over and those with ongoing risk factors. Сергей Inquiry Pt receiving controlled substance: No Vital Signs: 05/02/24 13:53 05/02/24 16:22 Temperature 98.2 F Temperature Source Oral Pulse Rate 71 Pulse Rate [Right Brachial] 96 H Respiratory Rate 16 Blood Pressure 102/71 L Blood Pressure [Right Arm] 132/76 Blood Pressure Mean [Right Arm] 94 Blood Pressure Source [Right Arm] Automatic Cuff Blood Pressure Position [Right Arm] Sitting 02 Sat by Pulse Oximetry 99 98 Oxygen Delivery Method Room Air Room Air Lab Data Lab results reviewed: Yes I reviewed the patient's lab results. Orders (Tests/Meds): ED MEDICATIONS Generic Name Dose Route Start Last Admin Trade Name Freq PRN Reason Stop Dose Admin Dexamethasone Sodium Phosphate 8 mg 05/02/24 14:30 05/02/24 14:26 Dexamethasone 4mg/Ml 5ml Mdv IM 06/01/24 14:29 8 mg Q6H JOSE Administration Discontinued Medications Generic Name Dose Route Start Last Admin Trade Name Freq PRN Reason Stop Dose Admin Acetaminophen 1,000 mg 05/02/24 14:18 05/02/24 14:27 Acetaminophen 500mg Tab PO 05/02/24 14:19 1,000 mg ONCE ONE Administration Ketorolac Tromethamine 30 mg 05/02/24 14:18 05/02/24 14:26 Ketorolac 30mg/Ml Vial IM 05/02/24 14:19 30 mg ONCE ONE Administration Methocarbamol 500 mg 05/02/24 14:18 05/02/24 14:26 Methocarbamol 500mg Tablet PO 05/02/24 14:19 500 mg ONCE ONE Administration ORDERS Category Date Time Status CT lumbar spine wo con Stat Cat Scan 05/02/24 14:18 Completed Medical Decision Narrative: In summary patient is a 48-year-old male who presents to the emergency department for evaluation of left lower extremity paresthesia. Patient is hemodynamically stable upon arrival, afebrile. Physical exam is remarkable for intact motor and sensory of the left lower extremity and patient does not have an antalgic gait. He reports subjective numbness tingling pain from the knee down. He has no saddle anesthesia. He is not tender in the dorsal spine no bony deficits noted.. Differential diagnosis includes degenerative spine disease, sciatica, peripheral neuropathy, osteoarthritis etc. Initial workup will be conducted with CT of the lumbar spine without contrast.. Initial interventions include Decadron Robaxin Toradol acetaminophen. Initial workup reviewed by me and patient does have degenerative spine disease most pronounced at L5-S1 with neuroforaminal narrowing bilaterally however more pronounced on the left prior to radiology read. Upon repeat evaluation patient reported minimal improvement in his symptoms. Given this patient is appropriate for discharge with prescriptions for lidocaine patch, muscle relaxer, 5-day course of steroids. Patient to keep his follow-up with Dr. Lemus and to call and update them in the morning. Critical Care Critical Care Time Critical Care Time: No
--- NOTE | 2024-05-02 14:18 | CT_ITS ---
FINAL REPORT TECHNIQUE: Axial images were obtained of the lumbar spine by computed tomography. Coronal and sagittal reconstruction process performed. This study was performed with techniques to keep radiation doses as low as reasonably achievable (ALARA). Individualized dose reduction techniques using automated exposure control or adjustment of mA and/or kV according to the patient's size were employed. CLINICAL HISTORY: Left lower extremity paresthesia COMPARISON: None FINDINGS: Lumbar vertebrae show normal height. There is moderate disc space narrowing at the L5-S1 level with associated vacuum phenomenon. There is no malalignment. The facets are properly aligned. No acute fracture is noted. The L1-2, L2-3, and L3-4 levels are unremarkable in appearance. L4-5: Mild annular bulge with mild bilateral neural foraminal narrowing. L5-S1: A moderate annular bulge is present with endplate hypertrophy and mild bilateral facet hypertrophy. There is moderate right and moderate to severe left neural foraminal narrowing. IMPRESSION: No acute bony abnormality is identified. Degenerative changes present in the lower lumbar spine, most severe at the L5-S1 level as described above. Reviewed, Interpreted and Dictated by Matt Florentino MD Transcribed by Lory Mccarty Authenticated and [facility]
[2024-05-02] MEDS: METHOCARBAMOL 500MG TABLET 500 MG PO (14:26)
[2024-05-02] MEDS: DEXAMETHASONE 4MG/ML 5ML MDV 8 MG IM (14:26)
[2024-05-02] MEDS: KETOROLAC 30MG/ML VIAL 30 MG IM (14:26)
[2024-05-02] MEDS: ACETAMINOPHEN 500MG TAB 1000 MG PO (14:27)
--- NOTE | 2024-05-02 15:26 | PC.NURSE ---
PT UPDATED ON POC, NO NEEDS AT THIS TIME. CALL LIGHT WITHIN REACH
[2024-05-02 16:22] VITALS: BP 102/71; PULSE 71; O2SAT 98
[2024-05-02 16:37] VITALS: BP 102/71; PULSE 71; RESP 16; TEMP 36.7; O2SAT 98
== END 2024-05-02 16:38 | disposition home or self-care (01) ==
PROVIDERS: Emergency Provider Emergency Medicine; PCP Physician Assistant
DX: M54.32 Sciatica, left side (principal)
CPT/HCPCS: 72131; 96372; 99284; J1100; J1885

== ENCOUNTER 2024-05-24 16:09 | Outpatient (CLI) | payer BC, SELFPAY ==
[2024-05-24 19:05] LABS: Prostate Specific Ag Screen 1.2 ng/ml (0.0-4.0)
== END 2024-05-24 23:59 | disposition home or self-care (01) ==
LOC: LAB.DROPOF 05-25 10:16
PROVIDERS: PCP Family Medicine; Visit Provider Family Medicine
DX: Z80.42 Family history of malignant neoplasm of prostate (principal)
CPT/HCPCS: G0103

== ENCOUNTER 2024-08-08 14:00 | Outpatient (RCR) | payer BC, SELFPAY | END 2024-08-08 23:59 | disposition home or self-care (01) | LOC: PT 14:00 | PROVIDERS: PCP Family Medicine; Visit Provider Nurse Practitioner Family | DX: M54.42 Lumbago with sciatica, left side (principal); G89.29 Other chronic pain | CPT/HCPCS: 97010; 97014; 97110; 97140; 97163; 97164; G0283 ==

== ENCOUNTER 2024-08-18 11:00 | Emergency (ER) | payer BC, SELFPAY ==
[2024-08-18 11:15] VITALS: BP 119/80; PULSE 74; RESP 19; TEMP 36.9; O2SAT 100
--- NOTE | 2024-08-18 11:31 | ED_ITS ---
Discharge Plan Disposition Patient Disposition: Home, Self-Care Condition: Good Prescriptions Prescriptions: No Action buspirone 5 mg tablet See Rx Instructions .ROUTE .COMPLEX Qty: 90 2RF Dose Instruction: TAKE 1 TABLET BY MOUTH THREE TIMES DAILY Rx Instructions: TAKE 1 TABLET BY MOUTH THREE TIMES DAILY Referrals Follow up/Referrals: Liban Staton MD [Primary Care Provider] - See instructions Activity Restrictions/Add. Instructions Additional Instructions/Restrictions: *Monitor Temp, Over the counter Motrin or Tylenol as directed/as needed Tylenol every 4 hours and Motrin every 6 hours (as long as your family doctor has told you that you can take it) for fever or pain. and straight to ER if unable to lower temp less than 101.0 after medication given Make sure to drink plenty of fluids *Sleep elevated *Humidifier/Vaporizer Follow up IMMEDIATELY for new or worsening symptoms or no Noticeable improvement over the next 48-72 hours. 911 for difficulty breathing or swallowing Clinical Impressions Clinical Impression: Viral syndrome Instructions Patient Instructions: DI for Nausea -- Adult, DI for Viral Syndrome Print Language Print Language: Norwegian Discharge ED Provider: Meri Griffith [facility] [place] General Stated complaint: nausea Mode of Arrival: Ambulatory Source of Information: Patient Limitations: No Limitations Time Seen by Provider: 08/18/24 11:31 Description of Symptoms (Recalled from Triage Doc. by RN): PATIENT C/O NAUSEA AN D RUNNY NOSE X 11 DAYS HEENT Symptoms (Recalled from RN notes): Yes Resp Symptoms (Recalled from RN notes): No Skin Symptoms (Recalled from RN notes): No MS Symptoms (Recalled from RN notes): No Functional Status (Recalled from RN notes): WNL History of Present Illness Provider Complaint: Patient states that a couple weeks ago he had a stomach thing going on States he had diarrhea for a couple of days and then it stopped States that since then he has had nausea on and off and runny nose Denies fever, denies chills Denies sore throat Denies abdominal pain States he has zofran at home Related Data Previous Rx's ?Medication ?Instructions ?Recorded buspirone 5 mg tablet See Rx Instructions .Route 05/24/24 .COMPLEX #90 tabs Allergies Allergy/AdvReac Type Severity Reaction Status Date / Time penicillin G (PENICILLIN G) Allergy Intermediate I-RASH Verified 05/24/24 18:05 Worker's Comp Is this a Worker's Comp case?: No [facility] Disclaimer: The information contained in this section may have been updated after the patient was seen, as this information can be updated by other users. Medical History (Updated 08/18/24 @ 11:35 by Meri Griffith APRN) Depression with anxiety Lumbar disc disease Numbness of left foot Pharyngitis Sinusitis Bronchitis Fracture of left tibia and fibula Pneumothorax Depression Anxiety Surgical History Fracture of left tibia and fibula Social History Smoking Status: Never smoker alcohol intake: current alcohol intake frequency: a few times a month current occupational status: employed Travel in the last 8 weeks: None household members: family housing: house caffeine: Yes Have you lived/traveled outside US in past 30 days?: No Contact w/someone who lives/traveled outside US past 30 days?: No Exposure to someone with infectious disease in past 14 days?: Yes Do you have a fever (greater than 100.4 F or 38 C)?: No Have you tested positive for COVID-19: No Exposed to someone with COVID-19 in past 14 days?: Yes Do you have a sore throat?: No Do you have a cough?: No Do you have any weakness?: No Do you have any diarrhea?: No Are you experiencing any unusual bleeding?: No Do you have any muscle aches/pain?: No Do you have any abdominal pain?: No Are you experiencing loss of taste or smell?: No ROS Obtained: Yes All systems reviewed & no additional complaints except as documented and Yes Systems reviewed as appropriate & no additional complaints except as documented Constitutional Constitutional: Reports system reviewed and no additional complaints, except as documented, Reports as per HPI, Denies body ache, Denies chills, Denies fever(s) and Denies headache(s) ENT Ears, Nose, Mouth, and Throat: Reports system reviewed and no additional complaints, except as documented, Reports as per HPI, Denies headache(s), Reports nasal congestion and Reports nasal discharge Cardiovascular Cardiovascular: Reports system reviewed and no additional complaints, except as documented and Reports as per HPI Respiratory Respiratory: Reports system reviewed and no additional complaints, except as documented and Reports as per HPI Gastrointestinal Gastrointestingal: Reports system reviewed and no additional complaints, except as documented, as per HPI and nausea (on and off x 2 weeks); Denies abdominal pain Genitourinary Male Genitourinary: Reports system reviewed and no additional complaints, except as documented and Reports as per HPI Musculoskeletal Musculoskeletal: Reports system reviewed and no additional complaints, except as documented and Reports as per HPI Neurologic Neurologic: Denies headache(s) Physical Exam General General appearance: alert and in no apparent distress ENT ENT exam: Present normal exam, normal oropharynx, mucous membranes moist and TM's normal bilaterally Expanded ENT Exam Nose exam: Present other (reports clear drainage ) Respiratory Respiratory exam: Present normal lung sounds bilaterally; Absent respiratory distress or wheezes Cardiovascular Cardiovascular exam: Present regular rate, normal rhythm and normal heart sounds Abdominal Exam Abdominal exam: Present soft and normal bowel sounds; Absent distention, tenderness, guarding or rebound Neurological Exam Neurological exam: Present alert, oriented X3 and normal gait Medical Decision Making Medical Records Screening: Per USPSTF and CDC recommendations, given the prevalence of disease in our [facility], it is our hospital?s policy to screen for HIV and viral Hepatitis for all patients aged 18 and over and those with ongoing risk factors. Сергей Inquiry Pt receiving controlled substance: No Сергей was queried for this patient: No Vital Signs: 08/18/24 11:15 Temperature 98.4 F Temperature Source Oral Pulse Rate [Left Brachial] 74 Respiratory Rate 19 Blood Pressure [Left Arm] 119/80 Blood Pressure Mean [Left Arm] 93 Blood Pressure Source [Left Arm] Automatic Cuff Blood Pressure Position [Left Arm] Sitting 02 Sat by Pulse Oximetry 100 Oxygen Delivery Method Room Air
[2024-08-18 11:37] VITALS: BP 119/80; PULSE 74; RESP 19; TEMP 36.9; O2SAT 100
== END 2024-08-18 11:40 | disposition home or self-care (01) ==
PROVIDERS: Emergency Provider Nurse Practitioner; PCP Family Medicine
DX: B34.9 Viral infection, unspecified (principal)
CPT/HCPCS: 99213; G0381

== ENCOUNTER 2024-08-22 17:13 | Outpatient (CLI) | payer BC, SELFPAY ==
--- NOTE | 2024-08-22 17:23 | MR_ITS ---
PROCEDURE INFORMATION: Exam: MR Lumbar Spine Without Contrast Exam date and time: 08/22/2024 5:28 PM Age: 49 years old Clinical indication: Pain; Lumbago with sciatica; Left; Additional info: Left leg pain TECHNIQUE: Imaging protocol: Magnetic resonance imaging of the lumbar spine without contrast. COMPARISON: CT LUMBAR SPINE WO CON 05/02/2024 2:26 PM FINDINGS: Bones/joints: 3 mm retrolisthesis L5 on S1 with disc space height loss and desiccated disc similar to the comparison CT scan. There are type 2 endplate degenerative changes present at L5-S1. No fracture. No suspicious marrow signal. Spinal cord: Visualized cord, conus medullaris and cauda equina are unremarkable. L1-L2: No significant disc bulge or herniation. No severe spinal canal stenosis. No significant neural foraminal narrowing. L2-L3: No significant disc bulge or herniation. No severe spinal canal stenosis. No significant neural foraminal narrowing. L3-L4: No significant disc bulge or herniation. No severe spinal canal stenosis. No significant neural foraminal narrowing. L4-L5: There is disc desiccation with subtle diffuse disc bulging not causing spinal canal stenosis. There is degenerative facet arthrosis with mild narrowing of both neural foramen. A small posterior annular tear is present. L5-S1: There is minimal diffuse disc bulging and endplate osteophyte eccentric to the left not causing spinal canal stenosis. There is degenerative facet arthrosis bilaterally. The right neural foramina is severely narrowed [id number]-left. Disc material contacts the left exiting L5 nerve root without significant displacement. Soft tissues: Unremarkable. IMPRESSION: Degenerative disc disease without significant spinal canal stenosis, as described. The neural foramina are severely narrowed on both sides at L5-S1.
== END 2024-08-22 23:59 | disposition home or self-care (01) ==
LOC: RAD 17:15
PROVIDERS: PCP Family Medicine; Visit Provider Nurse Practitioner Family
DX: M54.42 Lumbago with sciatica, left side (principal); M79.605 Pain in left leg
CPT/HCPCS: 72148

== ENCOUNTER 2024-11-29 09:27 | Outpatient (CLI) | payer BC, SELFPAY ==
[2024-11-29 18:22] LABS: Basophils % 0.3 % (0.1-2.0); Eosinophils % 0.5 % (0.1-12.0); Hematocrit 43.7 % (42.0-52.0); Lymphocytes # 1.2 K/mm3 (0.7-4.5); Lymphocytes % 15.1 % (10-50); Mean Corpuscular HGB Conc 34.3 g/dL (31.8-35.4); Mean Corpuscular Hemoglobin 31.4 pg (27.0-31.2); Mean Corpuscular Volume 91.4 fl (80-94); Mean Platelet Volume 11.1 fl (7.4-10.4); Monocytes # 0.5 K/mm3 (0.1-1.0); Monocytes % 6.9 % (1.7-9.3); Neutrophils # 5.9 K/mm3 (1.8-7.8); Neutrophils % 76.8 % (37.0-80.0); Nucleated Red Blood Cells # 0 10^3/uL; Nucleated Red Blood Cells % 0 %; Platelet Count 229 K/mm3 (142-424); Red Blood Count 4.78 M/mm3 (4.60-6.20); Red Cell Distribution Width-SD 39.9 fL; White Blood Count 7.7 K/mm3 (4.8-10.8)
[2024-11-29 19:16] LABS: Alanine Aminotransferase 19 U/L (12-78); Albumin Level 4.4 g/dl (3.5-5.0); Albumin/Globulin Ratio 1.5 (1.1-1.8); Alkaline Phosphatase 51 U/L (38-126); Anion Gap 12.4 mEq/L (5-15); Aspartate Amino Transferase 26 U/L (17-59); Bilirubin,Total 0.9 mg/dl (0.2-1.3); Blood Urea Nitrogen 12 mg/dl (9-20); Calcium 9.7 mg/dl (8.4-10.2); Carbon Dioxide 31 mmol/L (22.0-30.0); Chloride 102 mmol/L (98-107); Cholesterol 187 mg/dl (140-200); Estimated Glomerular Filt Rate 72 ml/min (>60); GFR (African American) 87 ML/MIN (>60); Globulin 2.9 g/dL (1.3-3.2); Glucose 120 mg/dl (74-100); HDL Cholesterol 62 mg/dl (40-60); Potassium 4.4 mmoL/L (3.5-5.1); Sodium 141 mmol/L (136-145); Total Protein,Serum 7.3 g/dl (6.3-8.2); Triglycerides 58 mg/dl (30-150); VLDL Cholesterol 12 mg/dL (0-40)
[2024-11-29 19:27] LABS: Direct LDL Cholesterol 92.51 mg/dL (100-129)
[2024-11-29 19:33] LABS: 25-OH Vitamin D, Total 50.4 ng/mL (30-100)
[2024-11-29 19:49] LABS: Hemoglobin A1C 4.8 % (4.0-6.0); Thyroid Stimulating Hormone 0.34 uIU/mL (0.465-4.68)
[2024-11-29 20:08] LABS: Vitamin B12 505 pg/mL (239-931)
--- OUTSIDE RECORDS SUMMARY | 2024-12-02 09:29 | XMS_ITS ---
Author Organization [facility] , [facility] Address [address] [place] [phone] Phone Care Team Providers Care Spool Carrier Name Role Phone Allan PHILLIPS, Triston Cam Unavailable [phone] Plan of Treatment No Plan of Treatment Recorded Assessments Includes: Assessments for all patient encounters No Assessments Recorded Medical Equipment - Implanted Devices Includes: Current and historical Devices No Medical Equipment Recorded Medications Administered Includes: Administered Medications in patient's chart No Administered Medications Recorded Results Includes: Results from 12/03/2023 through 12/02/2024 No Results Recorded For Specified Dates History of Present Illness History of Present Illness not supported for this document type No History of Present Illness Recorded Social History No Social History Recorded - Smoking Status Unknown Medical History Includes: Medical History in patient's chart No Medical History Recorded Family History Includes: Family History in patient's chart No Family History Recorded Review of Systems Review of Systems not supported for this document type No Review of Systems Recorded Mental Status No Mental Status Recorded Functional Status No Functional Status Recorded Physical Exam Physical Exam not supported for this document type No Physical Exam Recorded Insurance Includes: Active Insurance Policies No Insurance Coverage Recorded Guarantor Relationship Effective Dates Guarantor Ph one [place] Self [id number] Clinical Notes Includes: Signed Clinical Notes starting from 07/28/2022 No Clinical Notes Recorded
--- OUTSIDE RECORDS SUMMARY | 2024-12-02 09:29 | XMS_ITS ---
Care Plan - [facility], [facility] Created on: December 02, 2024 [place] W : 1975 Sex: Male Author Organization [facility] , [facility] Address [address] [place] [phone] Phone Care Team Providers Care Porter Marina Name Role Phone Allan PHILLIPS, Triston Cam Unavailable [phone]
== END 2024-11-29 23:59 | disposition home or self-care (01) ==
LOC: LAB.DROPOF 12-02 09:27
PROVIDERS: PCP Family Medicine; Visit Provider Family Medicine
DX: G62.9 Polyneuropathy, unspecified (principal); F41.8 Other specified anxiety disorders; M54.32 Sciatica, left side; F33.8 Other recurrent depressive disorders; M51.9 Unspecified thoracic, thoracolumbar and lumbosacral intervertebral disc disorder
CPT/HCPCS: 80053; 80061; 82306; 82607; 83036; 84443; 85025

== ENCOUNTER 2025-01-24 14:13 | Outpatient (CLI) | payer BC, SELFPAY ==
[2025-01-24 18:53] LABS: Free Thyroxine Index 2.2 ug/dL (5.93-13.13); T4 (Thyroxine) 6.6 ug/dl (5.53-11.0); Triiodothryronine (T3) Uptake 34 % (23.5-40.5)
[2025-01-24 19:06] LABS: Thyroid Stimulating Hormone 0.42 uIU/mL (0.465-4.68)
--- OUTSIDE RECORDS SUMMARY | 2025-01-24 22:50 | XMS_ITS | Encounter Summary ---
Author Organization Healthcare Address [address] [place] [address] Care Team Providers Care Interior Design Consultant Name Role Phone Liban Sellers MD Primary Care Provider [phone] Mili Zamorano MD Unavailable [phone] Encounter Details Date Type Department Care Team (Late st Contact Info) Description 05/02/2024 Orders Only External Location [address] [place] [address] Provider, External Social History Tobacco Use Types Packs/Day Years Used Date Smoking Tobacco: Never Smokeless Tobacco: Never Alcohol Use Standard Drinks/Week Comments Not Currently 0 (1 standard drink = 0.6 oz pur e alcohol) Sex and Gender Information Value Date Recorded Sex Assigned at Not on file Legal Sex Male 7:29 PM EDT Gender Identity Not on file Sexual Orientation Not on file documented as of this encounter Plan of Treatment Not on file documented as of this encounter Procedures Procedure Name Priority Date/Time Associated Diagnosis Comments CT OUTSIDE IMAGES 05/02/2024 2:26 PM EDT documented in this encounter Results * CT OUTSIDE IMAGES (05/02/2024 2:26 PM EDT) Anatomical Region Laterality Modality Computed Tomogra phy 05/02/2024 2:26 PM EDT us External Provider IMG CT PROCEDURES Final Result documented in this encounter Visit Diagnoses Not on filedocumented in this encounter Additional Health Concerns Assessment Noted Time A fall risk assessment has been complete d for the patient 06/07/2022 10:45 AM EDT documented as of this encounter Care Teams Interior Design Consultant Relationship Specialty Start Date End Date Liban Sellers MD [address] [place] [address] PCP - General 12/10/21 Mili Zamorano MD [address] [place] [address] 12/10/21 documented as of this encounter
--- OUTSIDE RECORDS SUMMARY | 2025-01-24 22:50 | XMS_ITS | Clinical Summary ---
Author Organization [facility] Address [address] [place] [address] Care Team Providers Care Setter Molding And Coremaking Machines Name Role Phone Liban Sellers MD Primary Care Provider [phone] Mili Zamorano MD Unavailable [phone] Allergies Active Allergy Reactions Criticality Noted Date Comments Penicillin G Rash High 02/26/2024 Penicillins Other - please docum ent in the comment field Low 12/10/2021 Pseudoephedrine Anxiety Low 12/11/2021 Medications busPIRone (Buspar) 5 MG tablet Take 1 tablet (5 mg) by mouth 3 (three) times a day. Active acetaminophen (Tylenol) 500 MG tablet Take 2 tablets (1,000 mg total) by mouth every 6 (six) hours if needed for mild pain. 100 tablet 2 Active gabapentin (Neurontin) 100 MG capsule Take 1 capsule (100 mg total) by mouth 3 (three) times a day for 14 days. 42 capsule 2 Active methocarbamol (Robaxin) 750 MG tablet Take 1 tablet (750 mg total) by mouth every 6 (six) hours if needed for muscle spasms for up to 13 days. 50 tablet 2 Active oxyCODONE (Roxicodone) 5 MG immediate release tablet Take 1 tablet (5 mg total) by mouth every 6 (six) hours if needed for severe pain. 20 tablet 2 Active Additional Information Patient not taking.Reported on 08/08/2024 traMADol (Ultram) 50 MG tablet Take 1 tablet (50 mg total) by mouth every 8 (eight) hours if needed for moderate pain (pain unresponsive to non-opioids). 25 tablet Active Additional Information Patient not taking.Reported on 08/08/2024 Active Problems No known active problems Resolved Problems Problem Noted Date Diagnosed Date Resolved Date Closed fracture of left ankl e, initial encounter 12/11/2021 12/14/2021 Closed fracture of left ankle 12/10/2021 12/14/2021 Overview (12/11/2021): Added automatically from request for surgery [id number] Social History Tobacco Use Types Packs/Day Years Used Date Smoking Tobacco: Never Smokeless Tobacco: Never Tobacco Cessation:Counseling Given: Not Answered Alcohol Use Standard Drinks/Week Comments Not Currently 0 (1 standard drink = 0.6 oz pur e alcohol) Sex and Gender Information Value Date Recorded Sex Assigned at Not on file Legal Sex Male 7:29 PM EDT Gender Identity Not on file Sexual Orientation Not on file Last Filed Vital Signs Vital Sign Reading Time Taken Comments Blood Pressure 126/85 08/08/2024 7:57 AM EST Pulse 65 08/08/2024 7:57 AM EST Temperature 36.7 C (98.1 F) 06/07/2022 10:45 AM EDT Respiratory Rate 16 12/14/2021 7:23 AM EDT Oxygen Saturation 100% 08/08/2024 7:57 AM EST Inhaled Oxygen Concentration - - Weight 75.4 kg (166 lb 3.6 oz) 08/08/2024 7:57 A M EST Height 193 cm (6' 4 ) 07/05/2024 8:52 AM EST Body Mass Index 20.23 07/05/2024 8:52 AM EST Plan of Treatment Health Maintenance Due Date Last Done Comments [facility]-Infant/Child/Adol SDOH Screenings 1975 [facility]- SDOH Screenings 1995 [facility]-Adult SDOH Screenings 1995 [facility]-DTaP,Tdap,and Td Vaccine s (1 - Tdap) 1996 [facility]-Hepatitis B Vaccines (1 of 3 - 19+ 3-dose series) 1996 CT Colonography 2022 Colonoscopy 2022 FIT-DNA 2022 FIT 2022 FOBT 2022 Sigmoidoscopy 2022 [facility]-Colorectal Cancer Screening 2022 [facility]-Depression Screening 06/07/2023 06/07/2022 [id number] Vaccine ( season) 2024 06/11/2021, 05/14/2021 [facility]-Influenza Vaccine (Seaso n Ended) 2025 [facility]-Zoster Vaccines (1 of 2) 2027 [facility]-HIV Screening Completed 12/11/2021 [facility]-Hepatitis C Screening Completed 12/11/2021 HPV Vaccines Aged Out No longer eligi ble based on patient's age to complete this topic [facility]-HIB Vaccines Aged Out No longer e ligible based on patient's age to complete this topic [facility]-Hepatitis A Vaccines Aged Out No longer eligible based on patient's age to complete this topic [facility]-IPV Vaccines Aged Out No longer e ligible based on patient's age to complete this topic [facility]-Pneumococcal Vaccine: Pediatrics (0 to 5 Years) and At-Risk Patients (6 to 49 Years) Aged Out No longer eligible b ased on patient's age to complete this topic [facility]-Rotavirus Vaccines Aged Out No lo nger eligible based on patient's age to complete this topic Medical Devices Implanted Type Area Body And Fender Worker Device Identifier Shelf Expiration Date Model / Serial / Lot Screw 3.5mm Cortex Low Profile Selftap 68mm - [id number] Implanted:Qty: 1 on 12/11/2021 by Josh Reyna MD at [facility] [id number] / / Screw 3.5mm Cortex Low Profile Selftap 64mm - [id number] Implanted:Qty: 1 on 12/11/2021 by Josh Reyna MD at [facility] [id number] .[id number] / / Sleeve Outer Protect 12mm - [id number] Implanted:Qty: 1 on 12/11/2021 by Josh Reyna MD at [facility] Left: [employer] [id number] 02/10/2023 03.010.437 S / / [id number] Screw 4.0mm Cancellous Full Thread 16mm - [id number] Implanted:Qty: 1 on 12/11/2021 by Josh Reyna MD at [facility] Left: [employer] [id number] 206.016 / / Screw 4.0mm Cancellous Full Thread 18mm - [id number] Implanted:Qty: 2 on 12/11/2021 by Josh Reyna MD at [facility] Left: [employer] [id number] 206.018 / / Plate Lcp 1/3 Tubl Col 117mm 10h - [id number] Implanted:Qty: 1 on 12/11/2021 by Josh Reyna MD at [facility] Left: [employer]-[id number] 241.401 / / Screw 3.5mm Cortex Selftap 14mm - [id number] Implanted:Qty: 2 on 12/11/2021 by Josh Reyna MD at [facility] Left: [id number] 204.814 / / Nail 10mm Ti Chas Tbl Ex W/Prx Bnd 390mm - [id number] Implanted:Qty: 1 on 12/11/2021 by Josh Reyna MD at [facility] Left: [employer]-[id number] 07/13/2030 04.034.458 S / / [id number] Screw 5.0mm Ti T25 Star Lock For Im Nail 40mm - [id number] Implanted:Qty: 1 on 12/11/2021 by Josh Reyna MD at [facility] Left: [employer]-[id number] 04.005.530 / / Screw 5.0mm Ti T25 Star Lock For Im Nail 44mm - [id number] Implanted:Qty: 2 on 12/11/2021 by Josh Reyna MD at [facility] Left: [id number] 04.005.534 / / Screw 5.0mm Ti T25 Star Lock For Im Nail 38mm - [id number] Implanted:Qty: 1 on 12/11/2021 by Josh Reyna MD at [facility] Left: [employer]-[id number] 04.005.528 / / Screw 5.0mm Ti T25 Star Lock For Im Nail 36mm - [id number] Implanted:Qty: 1 on 12/11/2021 by Josh Reyna MD at [facility] Left: [id number] 04.005.526 / / Screw 3.5mm Cortex Selftap 18mm - [id number] Implanted:Qty: 1 on 12/11/2021 by Josh Reyna MD at [facility] Left: [id number] 204.818 / / Explanted Type Area Body And Fender Worker Device Identifier Shelf Expiration Date Model / Serial / Lot Plate Lcp 08/16 Tubl Col 117mm 10h - [id number] Explanted:Qty: 2 on 12/11/2021 at [facility] Left: [employer] [id number] 241.401 / / Screw 5.0mm Ti T25 Star Lock For Im Nail 40mm - [id number] Explanted:Qty: 1 on 12/11/2021 at [facility] Left: [employer] [id number] 04.005.530 / / Screw 5.0mm Ti T25 Star Lock For Im Nail 46mm - [id number] Explanted:Qty: 1 on 12/11/2021 at [facility] Left: [id number] 04.005.536 / / Procedures Procedure Name Priority Date/Time Associated Diagnosis Comments HEPATITIS C ANTIBODY - ED W/REFLEX TO HCV QUANT PCR STAT 12/11/2021 1:31 AM EDT HIV 1/2 ANTIBODY/ANTIGEN SCREEN WITH REFLEX TO HIV I/II DIFFERENTIATION STAT 12/11/2021 1:31 AM EDT from Last 3 Months or Most Recently Relevant to Health Maintenance Results * HIV 1 & 2 Antibody/Antigen Screen (12/11/2021 1:31 AM EDT) HIV 1 & 2 Antibody/Anti gen Screen Nonreactive Nonreactive 12/11/2021 3:04 AM EDT [facility] Blood Venous blood specimen / Unknown Venipuncture / Unknown 12/11/2021 1:31 AM EDT 12/11/2021 2:01 AM EDT Barry Fatima MD LAB BLOOD ORDERABLES Final Resu lt Performing Organization Address City/[facility]/ZIP Co de Phone Number [facility]ALTHCARE [facility] [address] [place] [address] * Brogue Hepatitis C Antibody (12/11/2021 1:31 AM EDT) [facility] Signature Hepatitis C Antibody Negative Negative 12/11/2021 3:07 AM EDT [facility] Blood Venous blood specimen / Unknown Venipuncture / Unknown 12/11/2021 1:31 AM EDT 12/11/2021 2:01 AM EDT Barry Fatima MD LAB BLOOD ORDERABLES Final Resu lt Performing Organization Address City/[facility] Co de Phone Number [facility]ALTH[facility]ARE [facility] [address] [place] [address] from Last 3 Months or Most Recently Relevant to Health Maintenance Insurance ANTH Advance Directives * Full Code (Latest Code Status on File) Date Activated Date Inactivated Comments 12/11/2021 5:17 AM 12/14/2021 3:18 PM Question Answer Comments Patient has decision-making capacity? Yes Care Teams Setter Molding And Coremaking Machines Relationship Specialty Start Date End Date Liban Sellers MD [place] [address] PCP - General 12/10/21 Mili Zamorano MD [address] [place], [place] [id number] 12/10/21
== END 2025-01-24 23:59 | disposition home or self-care (01) ==
LOC: LAB.DROPOF 22:50
PROVIDERS: PCP Family Medicine; Visit Provider Family Medicine
DX: G62.9 Polyneuropathy, unspecified (principal)
CPT/HCPCS: 84436; 84443; 84479

== ENCOUNTER 2025-07-02 16:44 | Outpatient (CLI) | payer BC, SELFPAY ==
[2025-07-02 19:57] LABS: 25-OH Vitamin D, Total 44.6 ng/mL (30-100)
[2025-07-02 20:00] LABS: Free Thyroxine Index 2.5 ug/dL (5.93-13.13); T4 (Thyroxine) 8.0 ug/dl (5.53-11.0); Triiodothryronine (T3) Uptake 31 % (23.5-40.5)
[2025-07-02 20:13] LABS: Thyroid Stimulating Hormone 0.47 uIU/mL (0.465-4.68)
== END 2025-07-02 23:59 ==
LOC: LAB.DROPOF 07-03 10:38
PROVIDERS: PCP Family Medicine; Visit Provider Family Medicine
DX: E55.9 Vitamin D deficiency, unspecified (principal); R79.89 Other specified abnormal findings of blood chemistry
CPT/HCPCS: 82306; 84436; 84443; 84479